=== PATIENT | male | born 1945 | race Asian ===

== ENCOUNTER 2020-03-07 15:54 | Inpatient (IN) | payer OTHER ==
[~2020-03-07] VITALS: Ht 152.4 cm; Wt 49.0 kg
[2020-03-07 21:30] VITALS: BP 140/91
--- NOTE | 2020-03-07 21:30 | NUR ---
GPS RN-ADMISSION NOTES: ADMITTED A 74-YR OLD MALE, FROM [facility]. ADMITTED ON 5249 FOR DTS/GD. PATIENT WITH HISTORY OF THOUGHTS OF SELF HARM AND PARANOID. CONCERN FOR POOR PO INTAKE AT HOME WITH MARKED WEIGHT LOSS REPORTED. UPON FACE TO FACE ASSESSMENT, PATIENT IS ALERT, ORIENTED X2, COOPERATIVE WITH CARE, CALM, FEELING DEPRESSED. VERBALIZATION OF FEELINGS ENCOURAGED. PT WAS ADVISED OF THE HOLD. PT'S RIGHTS HANDBOOK GIVEN. IN NO APPARENT DISTRESS NOTED. BELONGINGS WERE INVENTORIED AND CHECKED FOR CONTRABAND. PT. IS UNDER THE PSYCHIATRIC CARE OF DR. OBRIEN ORDERS OBTAINED, AND UNDER THE MEDICAL CARE OF DR. LOPEZ. SKIN BODY ASSESSMENT DONE. WOUND CONSULT ORDERED. BED LOCKED AND PLACED IN LOWEST POSITION TO MAINTAIN SAFETY. FALL PRECAUTIONS IMPLEMENTED. WILL CONTINUE TO MONITOR Q15 MINS. FOR SAFETY AND BEHAVIOR.
[2020-03-07] MEDS ORDERED: MAGNESIUM HYDROXIDE 30 ML UDC PO PRN (22:00)
[2020-03-07] MEDS ORDERED: BLOOD SUGAR DIAGNOSTIC 1 EACH STRIP IN ONE (22:00)
[2020-03-07] MEDS ORDERED: ACETAMINOPHEN 325 MG TABLET PO PRN (22:00)
[2020-03-07] MEDS ORDERED: MAG HYDROX/AL HYDROX/SIMETH 30 ML UDC PO PRN (22:00)
[2020-03-07] MEDS ORDERED: LORAZEPAM 0.5 MG TABLET PO PRN (22:00)
[2020-03-07] MEDS: TEMAZEPAM 7.5 MG CAPSULE PO PRN (23:13)
--- NOTE | 2020-03-07 23:17 | NUR ---
GPS-RN NOTE: PATIENT UNABLE TO SLEEP. ADMINISTERED RESTORIL 7.5MG PO ORDERED. WILL CONTINUE TO MONITOR.
[2020-03-08 06:37] LABS: ALBUMIN 3.1 g/dL (3.4-5.0); BILIRUBIN,TOTAL 0.8 mg/dL (0.2-1.0); CALCIUM, SERUM 8.7 mg/dL (8.5-10.1); CREATININE 0.8 mg/dL (0.6-1.3); POTASSIUM 3.4 mmol/L (3.5-5.1); TOTAL PROTEIN, SERUM 6.3 g/dL (6.4-8.2)
[2020-03-08 07:18] LABS: CHOLESTEROL 194 mg/dL (<200); HDL CHOLESTEROL 77 mg/dL (40-60); LDL 108 mg/dL (0-99); TRIGLYCERIDES 76 mg/dL (30-150)
[2020-03-08 08:00] VITALS: BP 116/78
[2020-03-08] MEDS: Z GUARD REMEDY 4 OZ OINT TP SCH ×2 (08:53→21:00)
[2020-03-08] MEDS ORDERED: POTASSIUM CHLORIDE 20 MEQ TAB.PRT.SR PO SCH (09:30)
--- NOTE | 2020-03-08 11:24 | NUR ---
WOUND CARE CONSULT: PT SEEN FOR SKIN ASSESSMENT AND NOTED TO HAVE BLANCHABLE REDNESS TO BUTTOCKS, PRESENT ON ADMISSION. RECOMMENDATIONS MADE FOR SKIN PROTECTION. DISCUSSED WITH NURSING STAFF. WILL SEE PRN. IN AGREEMENT WITH PLAN OF CARE.
--- NOTE | 2020-03-08 15:01 | NUR ---
SERAFIN AND NOTE: SERAFIN and met with pt to discuss his symptoms and reason for admission. Pt states he does not want to eat and does not want to live. Due to psychosis pts communication is limited.
--- NOTE | 2020-03-08 15:03 | NUR ---
FAMILY CONTACT: SERAFIN contacted pts daughter Monserrat [phone] to discuss pts treatment and discharge plan. Daughter states pt was a prisoner of war in [facility] and due to it pt became psychotic. She states that pt had been living in [facility] for 15 years until he and his recently moved back in August 2019 and lived with daughter for 2 months then moved out in October to a mobile home ([address], [place] [address]). Daughter states that pt was okay mentally until he moved into the mobile home she states that the limited space and the confinement made pt very depressed and highly anxious. Daughter stated that pt began prohibiting from leaving and then he began acting bizarre. Daughter states pt is able to return home but needs resources to help care for pt. SERAFIN will help form a safe and proper discharge plan in collaboration with .
--- NOTE | 2020-03-08 15:21 | NUR ---
INITIAL DISCHARGE PLAN: Per daughter Monserrat ([phone]) pt will return home [address] [place] [address]. SW will help form a safe and proper discharge in collaboration with .
[2020-03-08 16:00] VITALS: BP 123/78
[2020-03-08] MEDS: OLANZAPINE 2.5 MG TABLET PO SCH (20:26)
[2020-03-08 20:51] VITALS: BP 122/70
[2020-03-08] MEDS: TEMAZEPAM 7.5 MG CAPSULE PO PRN (22:15)
[2020-03-09 08:00] VITALS: BP 116/74
[2020-03-09] MEDS: Z GUARD REMEDY 4 OZ OINT TP SCH ×2 (10:53→21:25)
[2020-03-09 16:00] VITALS: BP 112/72
[2020-03-09 20:32] VITALS: BP 101/71
[2020-03-09] MEDS: OLANZAPINE 2.5 MG TABLET PO SCH (21:24)
--- NOTE | 2020-03-10 00:36 | NUR ---
Patient is alert and oriented x2. Interacted well during discussion. Complaint with medication. No adverse reaction noted. Good insight to his medical condition. Good eye contact. No complains given or noted. Denies pain and any apparent discomfort. Sacral area checked and Z-guard applied as ordered. Will continue to monitor behavior and medication effectiveness.
[2020-03-10 08:00] VITALS: BP 133/84
[2020-03-10] MEDS: Z GUARD REMEDY 4 OZ OINT TP SCH ×2 (09:00→21:07)
--- NOTE | 2020-03-10 09:33 | NUR ---
UR NOTE: SERAFIN faxed clinicals to Barbara Gupta Mgr with [facility] P: [phone] ext [phone] and fax: [phone] for review.
--- NOTE | 2020-03-10 14:57 | NUR ---
INDIVIDUAL INTERVENTION: SW attempted to meet with pt to discuss his symptoms of depression. Pt was asleep and not easily aroused by verbal cues.
[2020-03-10 16:00] VITALS: BP 133/89
[2020-03-10 20:34] VITALS: BP 122/74
[2020-03-10] MEDS: OLANZAPINE 2.5 MG TABLET PO SCH (20:42)
[2020-03-11 08:00] VITALS: BP 120/77
[2020-03-11] MEDS: Z GUARD REMEDY 4 OZ OINT TP SCH ×2 (08:47→21:05)
--- NOTE | 2020-03-11 08:55 | NUR ---
UR NOTE: SERAFIN faxed clinicals to Barbara Gupta Mgr with [facility] ([phone] ext [phone]) to the fax number: [phone] for review.
[2020-03-11] MEDS ORDERED: OLANZAPINE 2.5 MG TABLET PO SCH (13:00)
--- NOTE | 2020-03-11 14:18 | NUR ---
UR Note: SERAFIN spoke to Barbara Gupta Mgr with [facility] ([phone] ext [phone]) and informed her that the pt was placed on a 5250 hold on 03/07/20.
[2020-03-11 16:00] VITALS: BP 106/71
[2020-03-11] MEDS: OLANZAPINE 2.5 MG TABLET PO SCH (19:52)
[2020-03-11 20:00] VITALS: BP 102/66
[2020-03-11 20:14] VITALS: BP 102/66
[2020-03-12 07:35] LABS: BASOPHILS % (AUTO) 0.7 % (0.0-2.0); EOSINOPHILS % (AUTO) 1.3 % (0.0-6.0); HEMATOCRIT 41 % (39-51); HEMOGLOBIN 13.9 g/dL (13.5-17.5); LYMPHOCYTES # (AUTO) 1.5 /CMM (0.8-4.8); LYMPHOCYTES % (AUTO) 23.2 % (20.0-44.0); MEAN CORPUSCULAR HGB CONC 34 g/dl (31.0-36.0); MEAN CORPUSCULAR VOLUME 93 fL (80-96); MONOCYTES # (AUTO) 0.5 /CMM (0.1-1.30); MONOCYTES % (AUTO) 7.9 % (2.0-12.0); NEUTROPHILS # (AUTO) 4.4 /CMM (1.8-8.9); NEUTROPHILS % (AUTO) 66.9 % (43.0-81.0); PLATELET COUNT (AUTO) 160 /CMM (150-450); RED BLOOD CELL COUNT(AUTO) 4.43 MIL/uL (4.5-6.0); WHITE BLOOD COUNT (AUTO) 6.6 K/uL (4.3-11.0)
[2020-03-12 08:00] VITALS: BP 107/71
[2020-03-12 08:03] LABS: CALCIUM, SERUM 8.6 mg/dL (8.5-10.1); CREATININE 0.8 mg/dL (0.6-1.3); MAGNESIUM 2.1 mg/dL (1.8-2.4); TOTAL PROTEIN, SERUM 6.3 g/dL (6.4-8.2)
[2020-03-12] MEDS: Z GUARD REMEDY 4 OZ OINT TP SCH ×2 (09:36→21:05)
[2020-03-12] MEDS: OLANZAPINE 2.5 MG TABLET PO SCH ×2 (12:11→20:50)
[2020-03-12 16:00] VITALS: BP 101/67
[2020-03-12 20:00] VITALS: BP 112/70
[2020-03-13 08:00] VITALS: BP 101/75
[2020-03-13] MEDS: OLANZAPINE 2.5 MG TABLET PO SCH ×3 (08:43→20:39)
[2020-03-13] MEDS: Z GUARD REMEDY 4 OZ OINT TP SCH ×2 (08:44→20:44)
--- NOTE | 2020-03-13 10:12 | NUR ---
GPS RN NOTE: PT RESTING IN HIS BED. NO APPARENT DISTRESS NOTED.VS STABLE COMPLIANT WITH MEDS. PT IS DEPRESSED,ISOLATIVE WITH FLAT AFFECT.WITHDRAWN. PT DENIES SI/HI AT PRESENT TIME. WILL CONTINUE TO MONITOR PT FOR SAFETY AND BEHAVIOR PER GPS PROTOCOL.
[2020-03-13] MEDS: GABAPENTIN 100 MG CAPSULE PO SCH ×2 (11:37→16:50)
[2020-03-13 16:00] VITALS: BP 113/68
[2020-03-13 20:31] VITALS: BP 108/73
--- NOTE | 2020-03-13 20:45 | NUR ---
GPS RN NOTES: REFUSED Z GUARD PT REFUSED Z GUARD CREAM PER ORDER. EXPLAIN RISKS AND BENEFITS. PT STILL REFUSED X3. REASSESS PT SACRAL AREA, WITH NOTED NO REDNESS. PICTURE TAKEN AND PUT IN THE CHART. CONTINUE TO MONITOR.
[2020-03-14 08:00] VITALS: BP 100/71
[2020-03-14] MEDS: Z GUARD REMEDY 4 OZ OINT TP SCH ×2 (08:49→20:25)
[2020-03-14] MEDS: OLANZAPINE 2.5 MG TABLET PO SCH ×3 (08:49→20:23)
[2020-03-14] MEDS: GABAPENTIN 100 MG CAPSULE PO SCH ×2 (08:49→16:18)
[2020-03-14 15:44] VITALS: BP 101/66
[2020-03-14 16:00] VITALS: BP 101/66
--- NOTE | 2020-03-14 20:27 | NUR ---
GPS RN NOTES: REFUSED Z GUARD PT REFUSED Z GUARD CREAM PER ORDER. EXPLAIN RISKS AND BENEFITS. PT STILL REFUSED X3. REASSESS PT SACRAL AREA, WITH NOTED NO REDNESS. CONTINUE TO MONITOR
[2020-03-14 20:42] VITALS: BP 107/70
[2020-03-15 08:00] VITALS: BP 121/72
[2020-03-15] MEDS: Z GUARD REMEDY 4 OZ OINT TP SCH ×2 (08:37→21:58)
[2020-03-15] MEDS: GABAPENTIN 100 MG CAPSULE PO SCH ×3 (08:37→16:24)
--- NOTE | 2020-03-15 09:00 | NUR ---
RN NOTE- ALERT ORIENTED TO PERSON PLACE. CONFUSED, PO INTAKE GOOD, MED COMPLIANT WITHDRAWN ISOLATIVE MONO SYLLABIC RESPONSES. DENIES SI HI VH
--- NOTE | 2020-03-15 09:01 | NUR ---
UR NOTE: SERAFIN faxed clinicals to Barbara Gupta Mgr with [facility] ([phone] ext [phone]) to the fax number: [phone] for review.
--- NOTE | 2020-03-15 15:53 | NUR ---
Individual Intervention: SW met with the pt at bedside to discuss his stay at the hospital. SW stated that she noticed that the pt has been isolating in his room and the pt stated that was because he felt peace in his room. Pt stated that he does not like to interact with others and wants to go home where he is comfortable and knows that he is safe.
[2020-03-15 16:00] VITALS: BP 113/65
[2020-03-15] MEDS ORDERED: OLANZAPINE 2.5 MG TABLET PO SCH (20:00)
[2020-03-15 20:10] VITALS: BP 111/78
[2020-03-16 08:00] VITALS: BP 117/67
--- NOTE | 2020-03-16 08:32 | NUR ---
UR NOTE: SERAFIN faxed clinicals to Barbara Gupta Mgr with [facility] ([phone] ext [phone]) to the fax number: [phone] for review.
[2020-03-16] MEDS: Z GUARD REMEDY 4 OZ OINT TP SCH ×2 (10:38→20:40)
[2020-03-16] MEDS: GABAPENTIN 100 MG CAPSULE PO SCH ×3 (10:38→17:42)
--- NOTE | 2020-03-16 10:46 | NUR ---
WOUND CARE CONSULT: PT PRESENTS CONTINENT AND INDEPENDENT WITH BED MOBILITY. PT STATES THAT HE AMBULATES TO BATHROOM. WILL SEE PRN. Addendum: 03/16/20 at 1046 by EVONNE VÁZQUEZ WNDNU Amended: Links added. Addendum: 03/16/20 at 1055 by EVONNE VÁZQUEZ WNDNU RECOMMENDATIONS MADE FOR SKIN PROTECTION AFTER SPEAKING WITH
--- NOTE | 2020-03-16 10:50 | NUR ---
WD. NURSE IN AND PT. ENCOURAGED TO DO WITHOUT DIAPER AND GET OOB TO GO TO THE BATHROOM.
[2020-03-16] MEDS: VENLAFAXINE XR 37.5 MG CAP.SR.24H PO SCH (10:55)
[2020-03-16 16:00] VITALS: BP 110/76
[2020-03-16] MEDS ORDERED: OLANZAPINE 2.5 MG TABLET PO SCH (20:00)
[2020-03-16 20:04] VITALS: BP 119/76
[2020-03-17 08:00] VITALS: BP 112/76
[2020-03-17] MEDS: VENLAFAXINE XR 37.5 MG CAP.SR.24H PO SCH (08:36)
[2020-03-17] MEDS: GABAPENTIN 100 MG CAPSULE PO SCH ×3 (08:36→16:31)
[2020-03-17] MEDS: Z GUARD REMEDY 4 OZ OINT TP SCH ×2 (08:37→21:00)
[2020-03-17] MEDS: risperiDONE 1 MG TABLET PO SCH ×2 (12:06→16:31)
--- NOTE | 2020-03-17 15:04 | NUR ---
Individual Counseling: This SW met with the pt. at [facility] to facilitate counseling regarding positive coping mechanisms. The patient was receptive to meeting with SW. SW provided education about coping mechanisms: self-soothing, grounding techniques, and positive affirmations. Patient stated he feels anxious in the morning at times. Per pt., he azam by taking long walks, reading the bible and going to yazidi with his . SW used empathetic listening, validates his feeling and encouraged pt. to chart emotions to identify and express feelings. Pt. stated "I think I can". Pt. will be invited to attend future therapeutic milieu.
--- NOTE | 2020-03-17 15:56 | NUR ---
UR NOTE: SERAFIN faxed clinicals to Barbara Gupta Mgr with [facility] ([phone] ext [phone]) to the fax number: [phone] for review.
[2020-03-17 16:00] VITALS: BP 109/70
[2020-03-17] MEDS ORDERED: OLANZAPINE 2.5 MG TABLET PO SCH (20:00)
[2020-03-17 20:41] VITALS: BP 113/78
[2020-03-18 08:17] VITALS: BP 118/76
[2020-03-18] MEDS: Z GUARD REMEDY 4 OZ OINT TP SCH ×2 (08:31→20:25)
[2020-03-18] MEDS: VENLAFAXINE XR 37.5 MG CAP.SR.24H PO SCH (08:33)
[2020-03-18] MEDS: risperiDONE 1 MG TABLET PO SCH ×3 (08:33→20:22)
[2020-03-18] MEDS: GABAPENTIN 100 MG CAPSULE PO SCH ×3 (08:33→16:25)
--- NOTE | 2020-03-18 10:59 | NUR ---
UR NOTE: SERAFIN faxed clinicals to Barbara Gupta Mgr with [facility] ([phone] ext [phone]) to the fax number: [phone] for review.
--- NOTE | 2020-03-18 11:00 | NUR ---
Family Contact: SW contacted pts daughter Monserrat ([phone]) and left a voicmail stating that the SW would like to discuss the pts discharge planning.
--- NOTE | 2020-03-18 12:03 | NUR ---
Family Contact: Pts daughter, Monserrat ([phone]), called the SW and informed her that the pts tentative discharge date is set for SaturdayMarch 22. SW went over the medication changes and went over the pts current behaviors. SW stated that the pt will be discharged if he appears to be stable. Pts daughter stated that she will molded goods spot picker the pt. SW stated that she will confirm with the pts daughter on Saturday.
--- NOTE | 2020-03-18 14:46 | NUR ---
Individual Counseling: This SW met with the pt. at beside to facilitate 1on1 counseling. However, pt. was sleeping and no easily rousable. Pt. will be invited to attend future therapeutic milieu.
[2020-03-18 15:49] VITALS: BP 99/64
[2020-03-18 20:11] VITALS: BP 109/78
[2020-03-18] MEDS: BENZTROPINE MESYLATE (1 MG) 1 MG TABLET PO SCH (20:22)
[2020-03-19 08:00] VITALS: BP 114/76
[2020-03-19] MEDS: Z GUARD REMEDY 4 OZ OINT TP SCH ×2 (08:38→21:07)
[2020-03-19] MEDS: risperiDONE 1 MG TABLET PO SCH ×3 (08:38→20:35)
[2020-03-19] MEDS: GABAPENTIN 100 MG CAPSULE PO SCH ×3 (08:38→17:29)
[2020-03-19] MEDS: VENLAFAXINE XR 37.5 MG CAP.SR.24H PO SCH (08:38)
[2020-03-19 16:00] VITALS: BP 100/68
[2020-03-19 20:00] VITALS: BP 101/73
[2020-03-19] MEDS: BENZTROPINE MESYLATE (1 MG) 1 MG TABLET PO SCH (20:35)
[2020-03-20] MEDS: risperiDONE 1 MG TABLET PO SCH ×3 (07:30→20:24)
[2020-03-20 08:00] VITALS: BP 106/76
[2020-03-20] MEDS: VENLAFAXINE XR 37.5 MG CAP.SR.24H PO SCH (08:04)
[2020-03-20] MEDS: GABAPENTIN 100 MG CAPSULE PO SCH ×3 (08:05→16:51)
[2020-03-20] MEDS: Z GUARD REMEDY 4 OZ OINT TP SCH ×2 (08:05→20:25)
--- NOTE | 2020-03-20 09:00 | NUR ---
RN NOTE- PT SLEEPING EASILY AROUSABLE, MED COMPLIANT, WITHDRAWN FLAT ISOLATIVE NEEDS ATTENDED. ENCOURAGED OOB ACTIVITIES INTERACTION AND ADLS GROOMING. DENIES ALL AT PRESENT
[2020-03-20 16:00] VITALS: BP 112/71
[2020-03-20 19:41] VITALS: BP 102/65
[2020-03-20] MEDS: BENZTROPINE MESYLATE (1 MG) 1 MG TABLET PO SCH (20:24)
[2020-03-21 08:00] VITALS: BP 100/60
[2020-03-21] MEDS: GABAPENTIN 100 MG CAPSULE PO SCH ×3 (08:42→17:02)
[2020-03-21] MEDS: risperiDONE 1 MG TABLET PO SCH ×4 (08:42→20:36)
[2020-03-21] MEDS: Z GUARD REMEDY 4 OZ OINT TP SCH ×2 (08:43→20:37)
[2020-03-21] MEDS: VENLAFAXINE XR 37.5 MG CAP.SR.24H PO SCH (08:43)
--- NOTE | 2020-03-21 09:00 | NUR ---
RN NOTE- WITHDRAWN FLAT ISOLATIVE NEEDS ATTENDED. ENCOURAGED OOB ACTIVITIES INTERACTION AND ADLS GROOMING. DENIES ALL AT PRESENT
[2020-03-21] MEDS ORDERED: VENLAFAXINE XR 75 MG CAP.SR.24H PO ONE (11:30)
--- NOTE | 2020-03-21 13:05 | NUR ---
UR NOTE: SERAFIN faxed clinicals to Barbara Gupta Mgr with [facility] ([phone] ext [phone]) to the fax number: [phone] for review.
--- NOTE | 2020-03-21 13:19 | NUR ---
UR Note: SERAFIN called Barbara Gupta Mgr with [facility] ([phone] ext [phone]) and left a voicemail stating that the pt may need home health at the time of discharge and if that can be arranged.
--- NOTE | 2020-03-21 13:21 | NUR ---
Family Contact: SERAFIN contacted pts daughter Monserrat ([phone]) and informed her that the pt is not being discharged today and that a medication change was made starting today. SERAFIN then informed the pts daughter that she will be contacting the insurance company to see if they can assist with home health for the pt.
[2020-03-21 16:00] VITALS: BP 100/70
[2020-03-21] MEDS: BENZTROPINE MESYLATE (1 MG) 1 MG TABLET PO SCH ×3 (20:00→21:10)
[2020-03-21 20:01] VITALS: BP 97/66
--- NOTE | 2020-03-21 20:03 | NUR ---
RN OPEN NOTES PATIENT IS LAYING IN BED. BED IS IN LOWEST LOCKED POSITION WITH SIDE RAILS UP. A/O X2. ON RA SATURATING AT 97%, NO SOB/ ACUTE RESPIRATORY DISTRESS NOTED. APPEARS COMFORTABLE/ NO COMPLAINTS OF PAIN AT THE MOMENT. PATIENT IS CALM, COOPERATIVE, AND ISOLATIVE. WILL CONTINUE TO MONITOR Q15 MIN ROUNDS FOR SAFETY.
--- NOTE | 2020-03-21 20:24 | NUR ---
GPS-RN NOTE: RISPERDAL SCHEDULED FOR TONIGHT NOT ADMINISTERED DUE TO BP 97/66. WILL CONTINUE TO MONITOR.
[2020-03-21 20:50] VITALS: BP 98/69
[2020-03-21 23:00] VITALS: BP 98/67
--- NOTE | 2020-03-22 06:31 | NUR ---
GPS RN CLOSE NOTES PATIENT IS SLEEPING IN BED. BED IS IN LOWEST LOCKED POSITION WITH SIDE RAILS UP. BED ALARM ON. NO SOB/ ACUTE RESPIRATORY DISTRESS NOTED. A/O X2. NO COMPLAINTS OF PAIN AT THE MOMENT. WILL ENDORSE TO AM NURSE.
[2020-03-22 08:00] VITALS: BP 99/56
[2020-03-22] MEDS: risperiDONE 1 MG TABLET PO SCH ×3 (08:00→20:00)
--- NOTE | 2020-03-22 08:04 | NUR ---
RN NOTE- HELD RISPERDAL THIS AM. DECREASED BP 99/70 . WILL NOTIFY
[2020-03-22] MEDS: GABAPENTIN 100 MG CAPSULE PO SCH ×3 (08:29→16:47)
[2020-03-22] MEDS: VENLAFAXINE XR 150 MG CAP.SR.24H PO SCH (08:29)
[2020-03-22] MEDS: Z GUARD REMEDY 4 OZ OINT TP SCH ×2 (08:30→20:46)
--- NOTE | 2020-03-22 09:00 | NUR ---
RN NOTE- PT MORE INTERACTIVE TODAY, DENIES ALL, MED COMPLIANT PO INTAKE GOOD SMILING MORE AND CONVERSING
--- NOTE | 2020-03-22 09:03 | NUR ---
UR NOTE: SERAFIN faxed clinicals to Barbara Gupta Mgr with [facility] ([phone] ext [phone]) to the fax number: [phone] for review.
--- NOTE | 2020-03-22 15:50 | NUR ---
INDIVIDUAL INTERVENTION: Pt was asleep and not easily aroused by verbal cues.
[2020-03-22 16:00] VITALS: BP 103/70
[2020-03-22 20:10] VITALS: BP 96/69
--- NOTE | 2020-03-22 20:43 | NUR ---
GPS RN NOTES: REFUSED RISPERDAL PT REFUSED RISPERDAL 0.5MG PO DUE AT 1999. PT STATED, "NOT NECESSARY. I DON'T NEED IT. " EXPLAIN RISKS AND BENEFITS. PT STILL REFUSED X3. CONTINUE TO MONITOR
[2020-03-22 20:45] VITALS: BP 99/70
[2020-03-23 08:00] VITALS: BP 133/82
[2020-03-23] MEDS: VENLAFAXINE XR 150 MG CAP.SR.24H PO SCH (08:44)
[2020-03-23] MEDS: risperiDONE 1 MG TABLET PO SCH ×3 (08:45→17:41)
[2020-03-23] MEDS: GABAPENTIN 100 MG CAPSULE PO SCH ×3 (08:45→17:41)
[2020-03-23] MEDS: Z GUARD REMEDY 4 OZ OINT TP SCH ×2 (09:28→20:24)
--- NOTE | 2020-03-23 09:32 | NUR ---
UR NOTE: SERAFIN faxed clinicals to Barbara Gupta Mgr with [facility] ([phone] ext [phone]) to the fax number: [phone] for review.
--- NOTE | 2020-03-23 13:50 | NUR ---
INDIVIDUAL INTERVENTION: SW met with pt at bedside, pt was alert and awake and stated he wanted to go home already. Pt states he feels better and misses his family. SW informed pt that he may be able to go home on Saturday and pt appeared with dysphoric mood.
--- NOTE | 2020-03-23 13:56 | NUR ---
FAMILY CONTACT: SERAFIN contacted pts daughter Monserrat ([phone]) and informed her pt may be discharged on Saturday03/25/20. SW informed daughter that MD has made medication adjustments and wants to make sure pts mood is stable before discharging pt home. Daughter agreed and also stated that pt has been expressing to that his stomach has been in a lot of pain and also expressed shame due to him defecating on the bed a couple of nights ago. SW stated that she would inform nurse to assist pt with his stomach pain. SW also encouraged daughter to call the nurses station and ask to speak to nurse to provide her with information. Daughter agreed.
[2020-03-23 16:09] VITALS: BP 114/74
--- NOTE | 2020-03-23 17:15 | NUR ---
MS RN PATIENT REFUSED RISPERDAL W/ NO APPARENT REASON.
[2020-03-23 20:09] VITALS: BP 132/83
[2020-03-23] MEDS: BENZTROPINE MESYLATE (1 MG) 1 MG TABLET PO SCH (20:22)
[2020-03-24 08:00] VITALS: BP 128/83
[2020-03-24] MEDS: VENLAFAXINE XR 150 MG CAP.SR.24H PO SCH (08:36)
[2020-03-24] MEDS: risperiDONE 1 MG TABLET PO SCH ×3 (08:36→16:34)
[2020-03-24] MEDS: GABAPENTIN 100 MG CAPSULE PO SCH ×3 (08:36→16:34)
[2020-03-24] MEDS: Z GUARD REMEDY 4 OZ OINT TP SCH ×2 (08:38→20:48)
--- NOTE | 2020-03-24 11:28 | NUR ---
UR NOTE: SERAFIN faxed clinicals to Barbara Gupta Mgr with [facility] ([phone] ext [phone]) to the fax number: [phone] for review.
--- NOTE | 2020-03-24 11:29 | NUR ---
UR Note: SERAFIN called Barbara Gupta Mgr with [facility] ([phone] ext [phone]) and informed her that the clinical includes a home health order and that the pt is being discharged the following day. She stated that she will work on assisting the pt with a home health right away.
--- NOTE | 2020-03-24 14:36 | NUR ---
Family Contact: SW called the pts daughter Monserrat ([phone]) and informed her of the pts discharge for the following day and set up a time for the pt to get picked up. SW then informed the pts daughter that the insurance company is in the process of setting up home health and that the SW made a doctors appointment for the pt.
--- NOTE | 2020-03-24 14:38 | NUR ---
Doctors Appointment: SW called the pts primary care physician, Dr. Beckman ([phone]), and made an appointment for the pt for 03/28/20 at 12pm and faxed records to .
--- NOTE | 2020-03-24 15:18 | NUR ---
Group Note: SW met with pt at bedside and encouraged the pt to attend group therapy but the pt refused. Pt stated that he does not want to leave his room because he thinks that it is unsafe outside. Pt was alert and awake and stated he wanted to go home already. Pt states he feels better and misses his family. SW informed him that he will be going tomorrow and that his daughter will be picking him up around 4:30pm. SW stated that he will have appointments for aftercare and that home health is also in the process of being set up.
[2020-03-24 16:00] VITALS: BP 106/74
--- NOTE | 2020-03-24 19:30 | NUR ---
GPS RN NOTE, RECEIVED PATIENT AWAKE AND IN BED, PATIENT DENIES PAIN AT THIS TIME. PATIENT BREATHING IS UNLABORED WITH EQUAL RISE AND FALL OF THE CHEST. PATIENT IS ALERT AND ORIENTED X 2-3 ON ROOM AIR WITH A SPOO2 97%. PATIENT IS COMPLAINT WITH MEDICATION, BRIGHT, ISOLATIVE, CALM, AND COOPERATIVE. PATIENT DENIES SUICIDE AND HOMICIDAL IDEATIONS AT THIS TIME. PATIENT ASSISTED WITH TURNING AND REPOSITIONING Q2HR AND PRN FOR COMFORT AND CIRCULATION. PATIENT HAS NO NEEDS AT THIS TIME. PATIENT EDUCATED ON THE USE OF THE CALL BOYKIN. PATIENT BED SIDE RAILS UP X 2 FOR SAFETY. PATIENT BED IS LOCKED AND LOW WILL CONTINUE TO MONITOR AND MAINTAIN SAFETY Q15 MIN WITH THE HELP OF STAFF.
[2020-03-24 20:01] VITALS: BP 104/71
[2020-03-24] MEDS: BENZTROPINE MESYLATE (1 MG) 1 MG TABLET PO SCH (20:47)
[2020-03-25 08:00] VITALS: BP 117/79
[2020-03-25] MEDS: VENLAFAXINE XR 150 MG CAP.SR.24H PO SCH (08:36)
[2020-03-25] MEDS: Z GUARD REMEDY 4 OZ OINT TP SCH (08:36)
[2020-03-25] MEDS: GABAPENTIN 100 MG CAPSULE PO SCH ×3 (08:36→17:00)
[2020-03-25] MEDS: risperiDONE 1 MG TABLET PO SCH ×3 (08:36→17:00)
--- NOTE | 2020-03-25 08:44 | NUR ---
DR. OBRIEN GAVE AN ORDER TO D/C HOLD AND D/C HOME AND TO FOLLOW UP WTIH THE PSYCHIATRIST DR. DUTTA AT [address], [place] [address] WITH THE TEL# [phone] AND TO FOLLOW UP WITH THE DIRECTOR DISTRIBUTION DR. SHAWNA FITZPATRICK AT [address] [facility] [address] WITH THE TEL# [phone].
--- NOTE | 2020-03-25 09:54 | NUR ---
Prescriptions faxed over to [facility] at [phone] Verified that fax was received.
--- NOTE | 2020-03-25 13:37 | NUR ---
Family Contact: SW called the pts daughter Monserrat ([phone]) and confirmed that the pt is ready to be discharged and that the prescriptions were faxed to his pharmacy.
--- NOTE | 2020-03-25 14:17 | NUR ---
Discharge Note: Pt was discharged to his home located at [address] [place] [address]. Pts daughter, Monserrat ([phone]), picked up the pt around 5pm. Upon discharge, the pt appeared to be in a euthymic mood and presented with an anxious affect. Pt appeared to be alert and oriented x4 (time, place, self and situation). Pt denied both suicidal and homicidal ideation as well as auditory and visual hallucinations. Pt appears to be ambulatory with a steady gait. Pt appears to be groomed and appropriately dressed. Pt will continue to be under the care of psychiatrist, Dr. France, located at [address], [place] [address]; and pts marine painter, Dr. Amanda Beckman, located at [address] [place] [address]; ([phone]); fax: ([phone]). Pt has an appointment on 03/28/20 at 12pm.
--- NOTE | 2020-03-25 14:37 | NUR ---
UR NOTE: SERAFIN faxed a discharge clinical to Barbara Mims with [facility] ([phone] ext [phone]) to the fax number: [phone] for review.
[2020-03-25 16:05] VITALS: BP 118/77
--- NOTE | 2020-03-25 17:10 | NUR ---
GPS RN NOTE: DISCHARGE PATIENT IS A 74 YEAR OLD MALE DISCHARGED TO HOME. PATIENT IS IN STABLE CONDITION. VSS. NO ACUTE DISTRESS NOTED. NO COMPLAINTS. COMPLIANT WITH MEDICATION MANAGEMENT. COOPERATIVE WITH PLAN OF CARE. PSYCHIATRIC TREATMENT PLANS MET. MEDICAL TREATMENT PLANS DEFERRED FOR CONTINUAL MONITORING. DENIES SI/HI VAH AT THE TIME OF DISCHARGE. SKIN CHECK DONE WITH WOUND PICTURES IN CHART. EDUCATED PATIENT ABOUT AFTERCARE WITH COPY PROVIDED. RETURNED PERSONAL BELONGINGS TO PATIENT. MEDICATIONS RECONCILED WITH DR OBRIEN ALONG WITH PSYCHIATRIC DISCHARGE ORDERS. DISCHARGE PAPERWORK SIGNED. FOR FOLLOW UP WITH PSYCHIATRIST AND SHOTGUN SHELL LOADING MACHINE OPERATOR WITHIN [address] LEFT THE [facility] VIA PRIVATE CAR ACCOMPANIED BY DAUGHTERASHLEE. Addendum: 03/25/20 at 1809 by JEFFRY RODRIGUES RN As per SERAFIN, Home Health services ordered and was faxed to insurance.
== END 2020-03-25 17:05 | disposition home or self-care (01) | DRG 885 ==
LOC: GPS 21:17
PROVIDERS: ADMIT Psychiatry & Neurology Psychosomatic Medicine; ATTEND Nurse Practitioner Acute Care
DX: F33.3 Major depressive disorder, recurrent, severe with psychotic symptoms (principal); N17.0 Acute kidney failure with tubular necrosis; E87.0 Hyperosmolality and hypernatremia; F23 Brief psychotic disorder; F41.9 Anxiety disorder, unspecified; E87.6 Hypokalemia; F43.10 Post-traumatic stress disorder, unspecified; I10 Essential (primary) hypertension; L53.8 Other specified erythematous conditions
CPT/HCPCS: 36415; 80053-TC; 80061-TC; 82962-TC; 83735-TC; 85025-TC; 87081-TC; 97116-TC; 97530-TC